=== PATIENT | female | born 1965 | race Hispanic/Latino ===

== ENCOUNTER → 2019-06-11 | Outpatient (CLI) | payer BC ==
[~2019-06-11] MED LIST: ALBUTEROL2.5 MG/0.5 INH; ASPIR 8181 MG PO; LEVOTHYROXINE50 MCG PO; NEXIUM40 MG PO; PLAVIX75 MG PO; PREDNISONE5 G1 PO; PULMICORT1 MG/2 ML INH
--- NOTE | 2019-06-11 14:41 | Diagnostic Imaging Report ---
History:Stroke 14 years ago. Patient Comparison studies:None Technique: Axial images were obtained from the skull base to the vertex. Coronal and sagittal images reconstructed from the axial data. Intravenous contrast: None Dose modulation, iterative reconstruction, and/or weight based adjustment of the mA/kV was utilized to reduce the radiation dose to as low as reasonably achievable. Findings: Scalp/skull: Right temporoparietal craniotomy changes. Extra-axial spaces: No masses. No fluid collections. Brain sulci: Mildly prominent. Ventricles: Mild compensatory dilatation. No hydrocephalus. Parenchyma: Scattered small hypodensities in the supratentorial white matter are small vessel ischemic changes. Cortical-based hypodensity at the left middle frontal gyrus with associated volume loss and encephalomalacia. Small cortical-based hypodensity at the left inferior parietal lobule secondary to remote insult. Small chronic lacunar infarcts at the right anteriorly limb of internal capsule. No masses, hemorrhage or acute cortical vascular insults. Sellar/suprasellar region: No abnormalities. Craniocervical junction: Patent foramen magnum. No Chiari one malformation. Incidental findings: Mild atherosclerotic calcifications in the carotid siphons . Impression: No acute abnormalities. Chronic findings: 1. Mild generalized volume loss. 2. Mild supratentorial white matter small vessel ischemic changes. 3. Left mid frontal gyrus remote infarct. 4. Right temporoparietal craniotomy changes with mild underlying encephalomalacia Signed by: DR Alex Dwyer M.D. on 06/11/2019 2:38 PM
== END ==
LOC: CT 13:18
PROVIDERS: ATTEND Specialist
DX: Z86.73 Personal history of transient ischemic attack (TIA), and cerebral infarction without residual deficits (principal)
CPT/HCPCS: 70450

== ENCOUNTER → 2019-07-27 | Day surgery (SDC) | payer BC ==
[2019-07-21 14:34] LABS: BASOPHILS % 0.3 % (0.0-1.0); EOSINOPHILS # (AUTO) 0.1 (0.0-0.4); EOSINOPHILS % 1.1 % (0.0-6.0); HEMATOCRIT 37.3 % (34.2-44.1); HEMOGLOBIN 12.1 g/dL (12.0-16.0); LYMPHOCYTES # (AUTO) 1.4 (1.0-3.2); LYMPHOCYTES % 14.6 % (18.0-39.1); MEAN CORPUSCULAR HEMOGLOBIN 29.9 pg (28-32); MEAN CORPUSCULAR HGB CONC 32.4 g/dL (31-35); MEAN CORPUSCULAR VOLUME 92.1 fL (81-99); MONOCYTES # (AUTO) 0.8 (0.2-0.8); NEUTROPHILS # (AUTO) 7.1 (2.1-6.9); NEUTROPHILS % 75.5 % (38.7-80.0); PLATELET COUNT 232 x10e3/uL (140-360); RED BLOOD COUNT 4.05 x10e6/uL (3.6-5.1); RED CELL DISTRIBUTION WIDTH 14.1 % (11.7-14.4)
[2019-07-21 15:07] LABS: ALANINE AMINOTRANSFERASE 17 IU/L (0-55); ALBUMIN 3.2 g/dL (3.5-5.0); ALBUMIN/GLOBULIN RATIO 0.8 (0.8-2.0); ALKALINE PHOSPHATASE 102 IU/L (40-150); ANION GAP 13.1 mmol/L (8-16); BLOOD UREA NITROGEN 17 mg/dL (7-26); BUN/CREATININE RATIO 20 (6-25); CALCIUM 9.9 mg/dL (8.4-10.2); CARBON DIOXIDE 29 mmol/L (22-29); CHLORIDE 102 mmol/L (98-107); CREATININE, SERUM 0.87 mg/dL (0.57-1.11); EST GLOMERULAR FILTRATION RATE > 60 ML/MIN (60-); GLUCOSE 95 mg/dL (74-118); POTASSIUM 4.1 mmol/L (3.5-5.1); SODIUM 140 mmol/L (136-145)
[~2019-07-27] VITALS: Ht 149.9 cm; Wt 55.3 kg
[2019-07-27] VITALS (8 sets, daily range): BP systolic 142–186; BP diastolic 60–92
[~2019-07-27] MED LIST changes: +ALPRAZOLAM 0.5 MG TAB ONE; +BENADRYL25 M1 PO; +CYCLOBENZAPRINE10 MG PO; +DIPHENHYDRAMINE HCL 25 MG CAP ONE; +FENTANYL CITRATE/PF 100MCG/2 ML INJ ONE; +HEPARIN SOD/SOD CHLORIDE 2,000 ML ONE; +IOPAMIDOL 370 MG/ML 200 ML INFUS..BTL INJ ONE; +LABETALOL HCL 20 ML ONE; +LIDOCAINE HCL 2% LOCAL 20 ML VIAL ONE; +METOPROLOL SUCC50 MG PO; +METOPROLOL TARTRATE INJ 1 MG/ML VIAL ONE; +MIDAZOLAM HCL 2 MG/2 ML VIAL ONE; +PANTOPRAZOLE SO40 MG PO; +SODIUM CHLORIDE 0.9% 1000ML 1,000 ML ONE
--- OUTSIDE RECORDS SUMMARY | 2019-07-27 12:26 | XMS REPORT ---
Author Author [facility] Address Unknown Phone Unavailable Care Team Providers Care Bacon De Rinder Name Role Phone BOLIVAR CARCAMO Unavailable Unavailable Problems This patient has no known problems. Allergies, Adverse Reactions, Alerts This patient has no known allergies or adverse reactions. Medications This patient has no known medications. Results Test Description Test Time Test Comments Text Results Atomic Results Result Comments CT BRAIN WO 2019-06-11 14:33:00 [facility] [address] [address] Patient Name: MADDI ANDINO MR #: [id number] : 1965 Age/Sex: 54/F Req #: [id number] [facility] Physician: Ordered by: BOLIVAR CARCAMO MD Report #: [id number] Location: CT Room/Bed: Procedure: [id number] CT/CT BRAIN WO Exam Date: 06/11/19 Exam Time: 1359 REPORT STATUS: Signed History:Stroke 14 years ago. Patient Comparison studies:None Technique: Axial images were obtained from the skull base to the vertex. Coronal and sagittal images reconstructed from the axial data. Intravenous contrast: None Dose modulation, iterative reconstruction, and/or weight based adjustment of the mA/kV was utilized to reduce the radiation dose to as low as reasonably achievable. Findings: Scalp/skull: Right temporoparietal craniotomy changes. Extra-axial spaces: No masses. No fluid collections. Brain sulci: Mildly prominent. Ventricles: Mild compensatory dilatation. No hydrocephalus. Parenchyma: Scattered small hypodensities in the supratentorial white matter are small vessel ischemic changes. Cortical-based hypodensity at the left middle frontal gyrus with associated volume loss and encephalomalacia. Small cortical-based hypodensity at the left inferior parietal lobule secondary to remote insult. Small chronic lacunar infarcts at the right anteriorly limb of internal capsule. No masses, hemorrhage or acute cortical vascular insults. Sellar/suprasellar region: No abnormalities. Craniocervical junction: Patent foramen magnum. No Chiari one malformation. Incidental findings: Mild atherosclerotic calcifications in the carotid siphons . Impression: No acute abnormalities. Chronic findings: 1. Mild generalized volume loss. 2. Mild supratentorial white matter small vessel ischemic changes. 3. Left mid frontal gyrus remote infarct. 4. Right temporoparietal craniotomy changes with mild underlying encephalomalacia Signed by: DR Alex Dwyer M.D. on 06/11/2019 2:38 PM Dictated By: ALEX MACDONALD MD [id number] Transcribed By: EDGARDO on 06/11/19 1438 COPY TO: BOLIVAR CARCAMO MD
--- NOTE | 2019-07-27 14:15 | NUR ---
pt in 181, prepped for procedure. Alert oriented and appropriate, PERRLA, respirations even and unlabored to room air. Pulses x4 extremities equal and palpable. Cap fill brisk < 3 sec. right radial palpable w/ excellent pleth. unable to rotate right shoulder due to contractures r/t previous CVA. Skin warm and dry integrity appears intact in general. IV 20g started and presents healthy w/o s/s of infiltration or complaint to left AC. Abdomen soft and supple. pt offered toileting, denies need to urinate or defecate. Personal affects with patient. Family at bedside. Pt and family verbalizes understanding of POC. Pre-Op Meds benadryl and xanax given. bed low and locked, side rails up x2 and call light at side. -cgf
--- NOTE | 2019-07-27 18:45 | NUR ---
1845am bedside report received from Celso ROGEL. [email or web address].Alert oriented and appropriate, PERRLA, respirations even and unlabored to room air. Pulses x4 extremities equal and strong. Pedal pulses PT/DP x4 Cap fill brisk < 3 sec. Rt Mynx site dry and intact. Skin warm and dry integrity appears D/I. IV 20g to left arm 100cchr , presents healthy w/o s/s of infiltration or complaint. Abdomen soft and supple. pt offered toileting, denies need to urinate or defecate. No personal affects with patient. Family Beny . Pt and family verbalizes understanding of POC. Dc 830pm. Currently w/o complaint of pain or need. ds/rn
--- NOTE | 2019-07-27 21:00 | NUR ---
2100Pt meets DC criteria. Rt groin (Mynx) assessed for s/s of complication and presence of hematoma. Skin warm, dry, no discolor, and pulses present. IV removed from left arm. Distal tip appears intact. VS WNL. Pt denies pain, sob, or need at this time. Family at [place] . Review of discharge paperwork and follow up instructions. verbalized understanding. Pt to wheelchair and transported to front of hospital. Transferred to private vehicle under own strength w/o incident with DC paperwork in hand. - ds/rn
--- NOTE | 2019-07-28 02:14 | Operative Report ---
DATE OF PROCEDURE: 07/27/2019 SURGEON: Denilson Brownlee MD INDICATION: Coronary artery disease, abnormal stress test. PROCEDURES PERFORMED: 1. Left heart catheterization, selective coronary angiography. 2. Deployment of right groin Mynx closure device. COMPLICATIONS: None. RECOMMENDATIONS: Medical therapy. BLOOD LOSS: Minimal. DESCRIPTION OF PROCEDURE: Access obtained in the right femoral artery. A 6-Swedish sheath was placed. Coronary angiography demonstrated diffuse mild 20% to 30% luminal stenosis, coronary artery disease. No critical stenosis or occlusions noted. No intervention was deemed necessary. Right groin repaired using Mynx closure device. The patient discharged home on the same day. Denilson Brownlee MD KSB/MODL /[id number]
== END | disposition home or self-care (01) ==
LOC: CATH LAB 12:24
PROVIDERS: ATTEND Internal Medicine Interventional Cardiology
DX: I25.118 Atherosclerotic heart disease of native coronary artery with other forms of angina pectoris (principal); R94.39 Abnormal result of other cardiovascular function study; Z01.812 Encounter for preprocedural laboratory examination; I11.0 Hypertensive heart disease with heart failure; I50.32 Chronic diastolic (congestive) heart failure; R00.0 Tachycardia, unspecified; J44.9 Chronic obstructive pulmonary disease, unspecified; J45.909 Unspecified asthma, uncomplicated; I69.951 Hemiplegia and hemiparesis following unspecified cerebrovascular disease affecting right dominant side; Z79.82 Long term (current) use of aspirin
CPT/HCPCS: 36415; 80053; 85025; 93454; C1760; C1769; J2001; J2250; J3010; J3490; J7030; Q9967